=== PATIENT | male | born 1965 | race Caucasian/White ===

== ENCOUNTER → 2021-02-19 | Outpatient (CLI) | payer BC ==
[~2021-02-19] MED LIST: ACET325T14 PO; ASPI81TA45 PO; ATOR20TA37 PO; CYCL10TA2 PO; DIPH25CA61 PO; IBUP-1223 PO; MULT-658 PO; OXYC1TAB14 PO
[2021-02-19 16:47] LABS: BASOPHILS % (AUTO) 1 % (0-1); EOSINOPHILS % (AUTO) 2 % (1-7); LYMPHOCYTES % (AUTO) 24 % (22-44); MEAN CORPUSCULAR HEMOGLOBIN 31.6 pg (27.5-34.5); MEAN CORPUSCULAR HGB CONC 34.7 g/dL (33.2-36.2); MEAN PLATELET VOLUME 8.2 fL (7.4-10.4); MONOCYTES % (AUTO) 10 % (2-9); NEUTROPHILS % (AUTO) 64 % (42-75); PLATELET COUNT 202 x10^3/uL (130-400); RED BLOOD COUNT 5.22 x10^6/uL (4.38-5.82)
[2021-02-19 16:47] LABS: MICROSCOPIC AUTO
[2021-02-19 16:49] LABS: MD NO
[2021-02-19 16:56] LABS: ANION GAP 5 mmol/L (5-15); CALCIUM 9.5 mg/dL (8.5-10.1); CHLORIDE 111 mmol/L (98-107); CREATININE 0.98 mg/dL (0.7-1.3)
[2021-02-19 17:08] LABS: PROTHROMBIN TIME 10.7 Seconds (9.6-11.5)
== END | disposition home or self-care (01) ==
LOC: STAR 15:45
PROVIDERS: ATTEND Student in an Organized Health Care Education/Training Program
DX: Z01.818 Encounter for other preprocedural examination (principal); N20.0 Calculus of kidney; I45.10 Unspecified right bundle-branch block; Z20.822 Contact with and (suspected) exposure to COVID-19
CPT/HCPCS: 36415; 80048; 81001; 85025; 85610; 87086; 93005; U0003

== ENCOUNTER 2021-02-23 07:34 | Day surgery (SDC) | payer BC ==
[~2021-02-23] VITALS: Ht 182.9 cm; Wt 101.0 kg
[2021-02-23] MEDS ORDERED: LACTATED RINGERS 1,000 ML IV SCH (08:00)
[2021-02-23] MEDS ORDERED: CHLORHEXIDINE 15 ML UDC PO ONE (08:00)
[2021-02-23] MEDS ORDERED: CHLORHEXIDINE 15 ML UDC ONE (08:02)
[2021-02-23] MEDS ORDERED: FENTANYL PF 100 MCG/2ML ONE (08:54)
[2021-02-23] MEDS ORDERED: MIDAZOLAM 1 MG/ML, 2ML ONE (08:54)
[2021-02-23] MEDS ORDERED: OMNIPAQUE 350 MG/ML, 50 ML BOTTLE ONE (09:43)
[2021-02-23] MEDS ORDERED: OMNIPAQUE 350 MG/ML, 50 ML BOTTLE INJ ONE (09:47)
[2021-02-23] MEDS ORDERED: OXYcodone 5 MG/5 ML ORAL.SOL UDC ONE (10:29)
[2021-02-23] MEDS ORDERED: ACETAMINOPHEN 650 MG/20.3 ML UDC ONE (10:29)
[2021-02-23] MEDS ORDERED: PROMETHAZINE 25 MG/ML, 1ML IV PRN (10:30)
[2021-02-23] MEDS ORDERED: HYDROmorphone 1 MG/ML, 1ML INJ IV PRN (10:30)
[2021-02-23] MEDS ORDERED: DIAZEPAM 5 MG/ML, 2ML IV PRN ×2 (10:30)
[2021-02-23] MEDS ORDERED: FENTANYL PF 100 MCG/2ML IV PRN (10:30)
[2021-02-23] MEDS ORDERED: MEPERIDINE/PF 25MG/0.5ML IVPush PRN (10:30)
[2021-02-23] MEDS ORDERED: METOCLOPRAMIDE 5 MG/ML, 2ML IV PRN (10:30)
[2021-02-23] MEDS ORDERED: LABETALOL 5MG/ML, 20ML IV PRN (10:30)
[2021-02-23] MEDS ORDERED: KETOROLAC 30 MG/1 ML IV PRN (10:30)
[2021-02-23] MEDS ORDERED: hydrALAzine 20 MG/ML, 1ML IV PRN (10:30)
[2021-02-23] MEDS ORDERED: ALBUTEROL SULFATE 2.5 MG/3 ML NPPB PRN (10:30)
[2021-02-23] MEDS ORDERED: ONDANSETRON 2MG/ML, 2ML IVPush PRN (10:30)
[2021-02-23] MEDS: OXYcodone 5 MG/5 ML ORAL.SOL UDC PO PRN ×2 (10:31→11:45)
[2021-02-23] MEDS ORDERED: KETOROLAC 30 MG/1 ML ONE (10:33)
[2021-02-23] MEDS ORDERED: CEFAZOLIN 1,000 MG ONE (11:02)
[2021-02-23] MEDS ORDERED: SUCCINYLCHOLINE 20 MG/ML, 10ML ONE (11:02)
[2021-02-23] MEDS ORDERED: PROPOFOL 10 MG/ML, 20ML ONE (11:02)
[2021-02-23] MEDS ORDERED: ROCURONIUM 10MG/ML,5ML ONE (11:02)
[2021-02-23] MEDS ORDERED: SUGAMMADEX 200 MG/2 ML IVPush ONE (11:02)
[2021-02-23] MEDS ORDERED: ONDANSETRON 2MG/ML, 2ML ONE (11:02)
== END 2021-02-23 12:50 | disposition home or self-care (01) ==
LOC: OUT 07:34
PROVIDERS: ATTEND Student in an Organized Health Care Education/Training Program
DX: N13.2 Hydronephrosis with renal and ureteral calculous obstruction (principal); N40.0 Benign prostatic hyperplasia without lower urinary tract symptoms; I25.10 Atherosclerotic heart disease of native coronary artery without angina pectoris; E78.5 Hyperlipidemia, unspecified; Z79.1 Long term (current) use of non-steroidal anti-inflammatories (NSAID); Z79.82 Long term (current) use of aspirin; Z79.899 Other long term (current) drug therapy; Z88.8 Allergy status to other drugs, medicaments and biological substances
CPT/HCPCS: 52351; 74420; C1769; J0330; J0690; J1885; J2250; J2405; J2704; J3010; Q9967

== ENCOUNTER 2021-06-26 07:24 | Outpatient (CLI) | payer BC ==
[~2021-06-26 07:24] MED LIST changes: +OXYC1TAB12 PO; -OXYC1TAB14 PO
== END 2021-06-26 23:59 | disposition home or self-care (01) ==
LOC: STAR 07:24
PROVIDERS: ATTEND Student in an Organized Health Care Education/Training Program
DX: Z02.9 Encounter for administrative examinations, unspecified (principal)

== ENCOUNTER 2021-06-28 07:43 | Day surgery (SDC) | payer BC ==
[~2021-06-28] VITALS: Ht 182.9 cm; Wt 100.9 kg
[2021-06-28 08:47] VITALS: BP 139/92
[2021-06-28] MEDS ORDERED: NALOXONE 1 MG/ML, 2ML ONE (09:53)
[2021-06-28] MEDS ORDERED: FENTANYL PF 100 MCG/2ML ONE (09:53)
[2021-06-28] MEDS ORDERED: MIDAZOLAM 1 MG/ML, 5ML ONE (09:53)
[2021-06-28] MEDS ORDERED: FLUMAZENIL 0.1 MG/1 ML, 5ML ONE (09:53)
[2021-06-28] MEDS ORDERED: LIDOCAINE 1%, 10ML ONE (09:58)
[2021-06-28] MEDS ORDERED: CEFAZOLIN PMX 1GM/50ML 50 ML ONE (10:18)
== END 2021-06-28 12:45 | disposition home or self-care (01) ==
LOC: OUT 07:43
PROVIDERS: ATTEND Student in an Organized Health Care Education/Training Program
DX: N20.0 Calculus of kidney (principal); Z79.899 Other long term (current) drug therapy
CPT/HCPCS: 50433; 99156; 99157; C1751; C1769; C1894; C2625; J0690; J2250; J3010; J2310

== ENCOUNTER 2021-06-29 05:42 | Observation (INO) | payer BC ==
[2021-06-26 08:42] LABS: MICROSCOPIC AUTO
[2021-06-26 08:49] LABS: INTERNATIONAL NORMALIZED RATIO 0.97 (0.93-1.1); PROTHROMBIN TIME 10.4 Seconds (9.6-11.5)
[2021-06-26 08:53] LABS: ANION GAP 5 mmol/L (5-15); CALCIUM 9.2 mg/dL (8.5-10.1); CHLORIDE 113 mmol/L (98-107)
[~2021-06-29] VITALS: Ht 182.9 cm; Wt 107.9 kg
[2021-06-29] MEDS ORDERED: LACTATED RINGERS 1,000 ML IV SCH (06:30)
[2021-06-29] MEDS ORDERED: CHLORHEXIDINE 15 ML UDC PO ONE (06:30)
[2021-06-29] MEDS ORDERED: OMNIPAQUE 350 MG/ML, 50 ML BOTTLE ONE ×2 (07:14→07:38)
[2021-06-29] MEDS ORDERED: FENTANYL PF 250 MCG/5ML ONE (07:28)
[2021-06-29] MEDS ORDERED: MIDAZOLAM 1 MG/ML, 2ML ONE (07:28)
[2021-06-29] MEDS ORDERED: DEXAMETHASONE 4 MG/ML, 1ML ONE (08:59)
[2021-06-29] MEDS ORDERED: PROPOFOL 10 MG/ML, 20ML ONE (08:59)
[2021-06-29] MEDS ORDERED: ROCURONIUM 10MG/ML,5ML ONE (08:59)
[2021-06-29] MEDS ORDERED: ONDANSETRON 2MG/ML, 2ML ONE (08:59)
[2021-06-29] MEDS ORDERED: SUCCINYLCHOLINE 20 MG/ML, 10ML ONE (08:59)
[2021-06-29] MEDS ORDERED: NEOSTIGMINE 1 MG/ML, 10ML ONE (08:59)
[2021-06-29] MEDS ORDERED: GLYCOPYRROLATE 0.2MG/1ML, 5ML ONE (08:59)
[2021-06-29] MEDS ORDERED: CEFAZOLIN 1,000 MG ONE (08:59)
[2021-06-29] MEDS ORDERED: PROMETHAZINE 25 MG SUPP PR PRN (09:00)
[2021-06-29] MEDS ORDERED: LORazepam 2 MG/ML, 1ML IVPush PRN (09:00)
[2021-06-29] MEDS ORDERED: LABETALOL 5MG/ML, 20ML IV PRN (09:00)
[2021-06-29] MEDS ORDERED: METOPROLOL 1 MG/ML, 5ML IV PRN (09:00)
[2021-06-29] MEDS ORDERED: OXYcodone 5 MG/5 ML ORAL.SOL UDC PO PRN (09:00)
[2021-06-29] MEDS ORDERED: PROMETHAZINE 25 MG/ML, 1ML IVPush PRN (09:00)
[2021-06-29] MEDS ORDERED: ONDANSETRON 2MG/ML, 2ML IVPush PRN (09:00)
[2021-06-29] MEDS ORDERED: FENTANYL PF 100 MCG/2ML IV PRN (09:00)
[2021-06-29] MEDS ORDERED: MEPERIDINE/PF 25MG/0.5ML IVPush PRN (09:00)
[2021-06-29] MEDS ORDERED: HYDROmorphone 1 MG/ML, 1ML INJ IVPush PRN (09:00)
[2021-06-29] MEDS ORDERED: HALOPERIDOL 5 MG/ML IV PRN (09:00)
[2021-06-29] MEDS ORDERED: ACETAMINOPHEN 325 MG TABLET PO PRN (09:00)
[2021-06-29] MEDS ORDERED: hydrALAzine 20 MG/ML, 1ML IV PRN (09:00)
[2021-06-29] MEDS ORDERED: METHOCARBAMOL 1,000 MG in DEXTROSE 5% 100 ML IV PRN (09:00)
[2021-06-29] MEDS: HEPARIN 5,000 UNITS/ML, 1ML SQ SCH ×2 (09:30→17:30)
[2021-06-29] MEDS ORDERED: ONDANSETRON 2MG/ML, 2ML IV PRN (09:30)
[2021-06-29] MEDS ORDERED: HYDROmorphone 1 MG/ML, 1ML INJ IV PRN (09:30)
[2021-06-29] MEDS: OXYcodone 5 MG/5 ML ORAL.SOL UDC PO PRN ×2 (11:02→22:30)
[2021-06-29] MEDS: ACETAMINOPHEN 325 MG TABLET PO SCH ×3 (11:03→22:14)
[2021-06-29 11:26] LABS: ALBUMIN 3.5 g/dL (3.4-5.0); ANION GAP 7 mmol/L (5-15); CHLORIDE 109 mmol/L (98-107); CREATININE 0.98 mg/dL (0.7-1.3)
[2021-06-29] MEDS: SODIUM CHLORIDE 0.9% 1,000 ML IV SCH (18:48)
[2021-06-29] MEDS: DOCUSATE 100 MG CAPSULE PO SCH (22:14)
[2021-06-29 22:28] VITALS: BP 136/87
[2021-06-30 01:00] VITALS: BP 128/85
[2021-06-30] MEDS: HEPARIN 5,000 UNITS/ML, 1ML SQ SCH ×2 (01:18→11:27)
[2021-06-30] MEDS: ACETAMINOPHEN 325 MG TABLET PO SCH ×2 (03:02→11:27)
[2021-06-30] MEDS: SODIUM CHLORIDE 0.9% 1,000 ML IV SCH ×2 (03:02→11:00)
[2021-06-30 04:18] VITALS: BP 134/86
[2021-06-30] MEDS: OXYcodone 5 MG/5 ML ORAL.SOL UDC PO PRN ×2 (04:23→13:52)
[2021-06-30 05:46] LABS: ANION GAP 8 mmol/L (5-15); CALCIUM 9.1 mg/dL (8.5-10.1); CHLORIDE 106 mmol/L (98-107); CREATININE 0.86 mg/dL (0.7-1.3)
[2021-06-30 08:07] VITALS: BP 126/76
[2021-06-30] MEDS ORDERED: POLYETHYLENE GLYCOL 17 GM PACKET PO SCH (09:00)
[2021-06-30] MEDS: DOCUSATE 100 MG CAPSULE PO SCH (11:27)
[2021-06-30 15:50] VITALS: BP 156/95
== END 2021-06-30 18:09 | disposition home or self-care (01) ==
LOC: OUT 05:42 → 4NE 09:00 → OUT 16:34 → 4NE 18:10
PROVIDERS: ADMIT Student in an Organized Health Care Education/Training Program; ATTEND Student in an Organized Health Care Education/Training Program
DX: N20.0 Calculus of kidney (principal); Z20.822 Contact with and (suspected) exposure to COVID-19; N13.5 Crossing vessel and stricture of ureter without hydronephrosis; N40.1 Benign prostatic hyperplasia with lower urinary tract symptoms; N13.8 Other obstructive and reflux uropathy; E78.5 Hyperlipidemia, unspecified; I10 Essential (primary) hypertension; G89.29 Other chronic pain; Z79.899 Other long term (current) drug therapy
CPT/HCPCS: 36415; 50081; 50430; 50570; 52601; 80048; 81001; 82040; 82360; 85014; 85018; 85610; 86850; 86900; 87086; 88300; 96360; 96361; 96372; C1727; C1758; C1769; C2617; C2627; G0378; J0690; J1100; J1644; J2250; J2405; J2704; J2710; J3010; J7030; J7120; Q9967; U0003; U0005; 74425; J0330